=== PATIENT | female | born 1960 | race Caucasian/White ===

== ENCOUNTER 2017-12-30 08:01 | Emergency (ER) | payer BC ==
[~2017-12-30] VITALS: Ht 157.5 cm; Wt 85.4 kg
[~2017-12-30 08:01] MED LIST: CALCIUM 600 +1 EA15 PO; CELECOXIB200 MG PO; CRANBERRY TABL1 EACH PO; DULOXETINE HCL30 MG PO; FLONASE16 G1 BOTH NARES; LATANOPROST2.5 ML BOTH EYES; LEVOCETIRIZINE D5 MG PO; MACROBID100 MG PO; MONTELUKAST SOD10 MG PO; MULTIPLE VITAM1 EAC1 PO; NEXIUM20 MG PO; PRILOSEC40 MG PO; PYRIDIUM200 MG PO; RESTASIS 01 DROP/0.4 BOTH EYES; SYNTHROID75 MCG PO
[2017-12-30 08:55] LABS: BASOPHIL (%) 0.5 % (0-1); BASOPHIL COUNT 0.1 K/uL (0-0.1); EOSINOPHIL (%) 1.5 % (0-5); EOSINOPHIL COUNT 0.2 K/uL (0-0.3); HEMATOCRIT 42.9 % (36.0-46.0); HEMOGLOBIN 14.6 G/DL (11.9-15.5); IMMATURE GRANULOCYTE (%) 0.4 % (0.0-0.7); LYMPHOCYTE (%) 15.5 % (15-42); LYMPHOCYTE COUNT 1.6 K/uL (1.0-2.8); MCH 30.5 PG (29.0-34.0); MCV 89.6 FL (83-99); MONOCYTE (%) 6.3 % (3-12); MONOCYTE COUNT 0.6 K/uL (0-0.8); NEUTROPHIL (%) 75.8 % (45-76); NEUTROPHIL COUNT 7.6 K/uL (1.8-6.4); PLATELET COUNT 298 K/uL (156-360); RBC DIS.WIDTH-CV 12.3 % (11.8-14.6); RBC DIS.WIDTH-SD 40.6 % (39-53); RED BLOOD COUNT 4.79 M/uL (3.80-5.20)
[2017-12-30 09:06] LABS: CHLORIDE 106 mEq/L (99-109); POTASSIUM 3.4 mEq/L (3.7-5.4); SODIUM 142 mEq/L (136-147)
[2017-12-30 09:07] LABS: GLUCOSE 158 mg/dL (70-99)
[2017-12-30 09:11] LABS: CREATININE 0.8 mg/dL (0.6-1.3); GFR ESTIMATE (CALCULATED) > 59 mL/min/
[2017-12-30 09:12] LABS: UREA NITROGEN (BUN) 20 mg/dL (9-23)
[2017-12-30 10:08] LABS: APPEARANCE CLEAR ((CLEAR)); BILIRUBIN NEGATIVE; BLOOD MODERATE; COLOR YELLOW ((YELLOW)); GLUCOSE (STRIP) 50; KETONES 5; LEUKOCYTES NEGATIVE; NITRITE NEGATIVE; PROTEIN (STRIP) NEGATIVE; SPECIFIC GRAVITY 1.015 (1.000-1.030); UROBILINOGEN 0.2 MG/DL (0.2-1.0)
[2017-12-30 10:20] LABS: BACTERIA RARE /HPF; EPITHELIAL CELLS RARE /HPF; MUCUS TRACE /LPF; RED BLOOD CELLS TNTC /HPF (0-5); WHITE BLOOD CELLS 0-5 /HPF (0-5)
[2017-12-30] MEDS ORDERED: FLOMAX0.4 MG PO (10:37)
[2017-12-30] MEDS ORDERED: ZOFRAN4 MG PO (10:37)
[2017-12-30] MEDS ORDERED: TRAMADOL HCL50 MG PO (10:37)
[2017-12-30 10:53] VITALS: BP 154/80
[2017-12-31] MEDS ORDERED: TORADOL10 MG PO (13:22)
== END 2017-12-30 10:55 | disposition home or self-care (01) ==
LOC: EME 08:01
PROVIDERS: Emergency Medicine
DX: N20.1 Calculus of ureter (principal); N20.0 Calculus of kidney; K21.9 Gastro-esophageal reflux disease without esophagitis; G89.29 Other chronic pain; Z88.5 Allergy status to narcotic agent; Z88.6 Allergy status to analgesic agent; Z88.0 Allergy status to penicillin; Z88.8 Allergy status to other drugs, medicaments and biological substances
CPT/HCPCS: 74176; 80048; 81003; 85025; 99281; 99284; J1885; J2405; J3010; J7030

== ENCOUNTER 2017-12-31 09:28 | Emergency (ER) | payer BC ==
[~2017-12-31] VITALS: Ht 157.5 cm; Wt 85.1 kg
[~2017-12-31 09:28] MED LIST changes: +FLOMAX0.4 MG PO; +TRAMADOL HCL50 MG PO; +ZOFRAN4 MG PO
[2017-12-31 11:07] LABS: BASOPHIL (%) 0.1 % (0-1); EOSINOPHIL (%) 0.1 % (0-5); HEMATOCRIT 41.2 % (36.0-46.0); HEMOGLOBIN 14.1 G/DL (11.9-15.5); IMMATURE GRANULOCYTE (%) 0.4 % (0.0-0.7); LYMPHOCYTE (%) 4.3 % (15-42); LYMPHOCYTE COUNT 0.6 K/uL (1.0-2.8); MCH 30.3 PG (29.0-34.0); MCHC 34.2 G/DL (30.0-36.0); MCV 88.4 FL (83-99); MONOCYTE (%) 5.4 % (3-12); MONOCYTE COUNT 0.7 K/uL (0-0.8); NEUTROPHIL (%) 89.7 % (45-76); NEUTROPHIL COUNT 12.1 K/uL (1.8-6.4); RBC DIS.WIDTH-CV 12.8 % (11.8-14.6); RBC DIS.WIDTH-SD 41.3 % (39-53); RED BLOOD COUNT 4.66 M/uL (3.80-5.20); WHITE BLOOD COUNT 13.5 K/uL (4.1-10.2)
[2017-12-31 11:18] LABS: CHLORIDE 104 mEq/L (99-109); SODIUM 137 mEq/L (136-147)
[2017-12-31 11:21] LABS: GLUCOSE 116 mg/dL (70-99)
[2017-12-31 11:23] LABS: GFR ESTIMATE (CALCULATED) 45 mL/min/
[2017-12-31 11:24] LABS: UREA NITROGEN (BUN) 28 mg/dL (9-23)
[2017-12-31 11:25] LABS: CREATININE 1.3 mg/dL (0.6-1.3)
[2017-12-31 11:44] LABS: PLAT.SUFFICIENCY ADEQUATE; PLATELET COUNT 254 K/uL (156-360)
[2017-12-31] MEDS ORDERED: TORADOL10 MG PO (13:22)
[2017-12-31 13:40] VITALS: BP 112/78
== END 2017-12-31 13:42 | disposition home or self-care (01) ==
LOC: EME 09:28
PROVIDERS: Emergency Medicine
DX: N20.0 Calculus of kidney (principal); K21.9 Gastro-esophageal reflux disease without esophagitis; E03.9 Hypothyroidism, unspecified; M41.9 Scoliosis, unspecified; Z87.442 Personal history of urinary calculi; Z88.5 Allergy status to narcotic agent; Z88.6 Allergy status to analgesic agent; Z88.1 Allergy status to other antibiotic agents; Z88.0 Allergy status to penicillin
CPT/HCPCS: 80048; 85025; 99281; 99285; J2405; J3010; J7030

== ENCOUNTER 2018-01-09 17:11 | Emergency (ER) | payer BC ==
[~2018-01-09] VITALS: Ht 157.5 cm; Wt 84.8 kg
[~2018-01-09 17:11] MED LIST changes: +TORADOL10 MG PO
[2018-01-09 18:03] LABS: HEMATOCRIT 40.3 % (36.0-46.0); HEMOGLOBIN 13.8 G/DL (11.9-15.5); MCH 30.7 PG (29.0-34.0); MCHC 34.2 G/DL (30.0-36.0); MCV 89.8 FL (83-99); PLATELET COUNT 273 K/uL (156-360); RBC DIS.WIDTH-CV 12.4 % (11.8-14.6); RBC DIS.WIDTH-SD 40.8 % (39-53); RED BLOOD COUNT 4.49 M/uL (3.80-5.20)
[2018-01-09 18:25] LABS: CHLORIDE 105 mEq/L (99-109); POTASSIUM 3.6 mEq/L (3.7-5.4); SODIUM 141 mEq/L (136-147)
[2018-01-09 18:27] LABS: GLUCOSE 103 mg/dL (70-99)
[2018-01-09 18:31] LABS: CREATININE 0.8 mg/dL (0.6-1.3); GFR ESTIMATE (CALCULATED) > 59 mL/min/; UREA NITROGEN (BUN) 15 mg/dL (9-23)
[2018-01-09 19:04] LABS: APPEARANCE CLOUDY ((CLEAR)); BILIRUBIN NEGATIVE; BLOOD LARGE; COLOR YELLOW ((YELLOW)); GLUCOSE (STRIP) NEGATIVE; KETONES NEGATIVE; LEUKOCYTES NEGATIVE; NITRITE NEGATIVE; PROTEIN (STRIP) 30; SPECIFIC GRAVITY 1.021 (1.000-1.030); UROBILINOGEN 0.2 MG/DL (0.2-1.0)
[2018-01-09 20:18] LABS: RED BLOOD CELLS 30-40 /HPF (0-5)
[2018-01-09 20:19] LABS: BACTERIA 1+ /HPF; EPITHELIAL CELLS RARE /HPF; MUCUS 1+ /LPF; UCUL ADDED? NO; WHITE BLOOD CELLS NONE SEEN /HPF (0-5)
[2018-01-09] MEDS ORDERED: BACTRIM,SEPT1 TABLET PO (20:24)
[2018-01-09] MEDS ORDERED: PYRIDIUM200 MG PO (20:25)
[2018-01-09 20:44] VITALS: BP 165/80
[2018-01-10] MEDS ORDERED: ZOFRAN4 MG SL (06:52)
[2018-01-10] MEDS ORDERED: FLOMAX0.4 MG PO (06:52)
== END 2018-01-09 20:45 | disposition home or self-care (01) ==
LOC: EME 17:11
DX: N30.90 Cystitis, unspecified without hematuria (principal); Z87.442 Personal history of urinary calculi; Z87.440 Personal history of urinary (tract) infections; E03.9 Hypothyroidism, unspecified; G89.29 Other chronic pain; K21.9 Gastro-esophageal reflux disease without esophagitis; M41.9 Scoliosis, unspecified; Z88.5 Allergy status to narcotic agent; Z88.0 Allergy status to penicillin
CPT/HCPCS: 80048; 81003; 85027; 99281; 99284

== ENCOUNTER 2018-01-10 00:12 | Emergency (ER) | payer BC ==
[~2018-01-10] VITALS: Ht 157.5 cm; Wt 84.0 kg
[~2018-01-10 00:12] MED LIST changes: +BACTRIM,SEPT1 TABLET PO
[2018-01-10 05:34] LABS: ALBUMIN 4.5 g/dL (3.2-4.8)
[2018-01-10 05:35] LABS: CHLORIDE 103 mEq/L (99-109); SODIUM 140 mEq/L (136-147)
[2018-01-10 05:37] LABS: GLUCOSE 152 mg/dL (70-99); TOTAL PROTEIN 7.3 g/dL (6.4-8.3)
[2018-01-10 05:39] LABS: TOTAL BILIRUBIN 0.7 mg/dL (0.0-1.0)
[2018-01-10 05:40] LABS: ALKALINE PHOSPHATASE 50 IU/L (3-129)
[2018-01-10 05:41] LABS: CREATININE 0.9 mg/dL (0.6-1.3); GFR ESTIMATE (CALCULATED) > 59 mL/min/
[2018-01-10 05:42] LABS: AST (GOT) 31 IU/L (2-34); UREA NITROGEN (BUN) 15 mg/dL (9-23)
[2018-01-10 05:43] LABS: ALT (GPT) 46 IU/L (3-49)
[2018-01-10 05:44] LABS: LIPASE 28 U/L (1.0-51.0)
[2018-01-10 05:49] LABS: APPEARANCE CLEAR ((CLEAR)); BILIRUBIN NEGATIVE; BLOOD MODERATE; COLOR STRAW ((YELLOW)); GLUCOSE (STRIP) 50; KETONES 20; LEUKOCYTES NEGATIVE; NITRITE NEGATIVE; PROTEIN (STRIP) 30; SPECIFIC GRAVITY 1.012 (1.000-1.030); UROBILINOGEN 0.2 MG/DL (0.2-1.0)
[2018-01-10 05:50] LABS: POTASSIUM > 10.0 mEq/L (3.7-5.4)
[2018-01-10 05:53] LABS: HEMATOCRIT 31.7 % (36.0-46.0); HEMOGLOBIN 11.2 G/DL (11.9-15.5); MCH 30.5 PG (29.0-34.0); MCHC 35.3 G/DL (30.0-36.0); MCV 86.4 FL (83-99); PLATELET COUNT 212 K/uL (156-360); RBC DIS.WIDTH-CV 12.3 % (11.8-14.6); RED BLOOD COUNT 3.67 M/uL (3.80-5.20); WHITE BLOOD COUNT 14.3 K/uL (4.1-10.2)
[2018-01-10 06:00] LABS: BACTERIA NONE SEEN /HPF; EPITHELIAL CELLS RARE /HPF; MUCUS TRACE /LPF; RED BLOOD CELLS 20-30 /HPF (0-5); UCUL ADDED? NO; WHITE BLOOD CELLS 0-5 /HPF (0-5)
[2018-01-10 06:39] LABS: CHLORIDE 107 mEq/L (99-109); SODIUM 141 mEq/L (136-147)
[2018-01-10 06:41] LABS: GLUCOSE 132 mg/dL (70-99)
[2018-01-10 06:45] LABS: CREATININE 0.9 mg/dL (0.6-1.3); GFR ESTIMATE (CALCULATED) > 59 mL/min/
[2018-01-10 06:46] LABS: POTASSIUM 4.5 mEq/L (3.7-5.4); UREA NITROGEN (BUN) 15 mg/dL (9-23)
[2018-01-10] MEDS ORDERED: ZOFRAN4 MG SL (06:52)
[2018-01-10] MEDS ORDERED: FLOMAX0.4 MG PO (06:52)
[2018-01-10 07:43] VITALS: BP 112/76
== END 2018-01-10 08:36 | disposition home or self-care (01) ==
LOC: EME 00:12
PROVIDERS: Physician Assistant
DX: N13.2 Hydronephrosis with renal and ureteral calculous obstruction (principal); K21.9 Gastro-esophageal reflux disease without esophagitis; E03.9 Hypothyroidism, unspecified; M41.9 Scoliosis, unspecified; Z87.440 Personal history of urinary (tract) infections; Z87.442 Personal history of urinary calculi; Z88.5 Allergy status to narcotic agent; Z88.6 Allergy status to analgesic agent; Z88.1 Allergy status to other antibiotic agents; Z88.0 Allergy status to penicillin
CPT/HCPCS: 74176; 80048 91; 80053; 81003; 83690; 85027; 87077; 87086; 87186; 93005; J2405; J3010; J7030